=== PATIENT | female | born 1960 | race Asian ===

== ENCOUNTER 2018-12-02 07:02 | Inpatient (IN) | payer BC ==
[~2018-12-02] VITALS: Ht 154.9 cm; Wt 54.0 kg
[2018-12-02 07:02] VITALS: BP_SYST 115
[2018-12-02 08:08] LABS: BASOPHILS % (AUTO) 0.2 % (0.0-2.0); EOSINOPHILS % (AUTO) 0.3 % (0.0-4.0); HEMATOCRIT 34.1 % (36-48); HEMOGLOBIN 11.4 g/dL (12.0-16.0); LYMPHOCYTES # (AUTO) 0.2 K/uL (1.0-5.5); LYMPHOCYTES % (AUTO) 2.6 % (20.5-51.5); MEAN CORPUSCULAR HEMOGLOBIN 28 pg (27-31); MEAN CORPUSCULAR HGB CONC 33 % (32-36); MEAN CORPUSCULAR VOLUME 85 fL (79.0-98.0); MONOCYTES # (AUTO) 0.1 K/uL (0.0-1.0); NEUTROPHILS # (AUTO) 7.2 K/uL (1.8-7.7); NEUTROPHILS % (AUTO) 95.9 % (40.0-70.0); PLATELET COUNT (AUTO) 147 K/uL (130-430); RED BLOOD CELL COUNT(AUTO) 4.03 MIL/uL (4.2-6.2); RED CELL DISTRIBUTION WIDTH 12.7 % (9.0-15.0); WHITE BLOOD COUNT (AUTO) 7.5 K/uL (4.8-10.8)
[2018-12-02] MEDS ORDERED: KETOROLAC TROMETHAMINE 15 MG VIAL IVP ONE (08:15)
[2018-12-02] MEDS ORDERED: NACL 0.9% 1,000 ML IV ONE (08:15)
[2018-12-02 08:22] LABS: CALCIUM 9.4 mg/dL (8.4-11.0); CREATININE 1.1 mg/dL (0.55-1.30)
[2018-12-02 08:24] LABS: INR 1.1 (0.8-1.2); PROTHROMBIN TIME 10.8 SECS (9.5-12.5)
[2018-12-02 08:28] LABS: ALBUMIN 2.9 g/dL (3.4-4.8); TOTAL BILIRUBIN 0.9 mg/dL (0.0-1.0)
[2018-12-02 08:42] LABS: BILIRUBIN,URINE NEGATIVE (NEGATIVE); BLOOD, URINE TRACE (NEGATIVE); CLARITY/URINE HAZY (CLEAR); COLOR,URINE YELLOW (YELLOW); GLUCOSE,URINE 3+ (NEGATIVE); KETONES,URINE TRACE (NEGATIVE); LEUKOCYTE ESTERASE ,URINE NEGATIVE (NEGATIVE); NITRITE, URINE POSITIVE (NEGATIVE); PROTEIN URINE 1+ (NEGATIVE); UROBILINOGEN,URINE 0.2 (0.2-1.0)
[2018-12-02] MEDS ORDERED: INSULIN REGULAR, HUMAN 10 UNITS/0.1 ML INJ IVP ONE (08:45)
[2018-12-02 08:48] LABS: BACTERIA,URINE MANY /HPF (None Seen); RBC,URINE 0-3 /HPF (0-3); WBC,URINE 0-3 /HPF (0-3)
[2018-12-02 08:49] LABS: MUCUS,URINE 1+ /LPF (None Seen)
[2018-12-02] MEDS ORDERED: IOHEXOL 100 ML IV ONE (10:57)
[2018-12-02] MEDS ORDERED: cefTRIAXone 1 GM IVPB PREMIX 50 ML IV ONE (11:00)
[2018-12-02] MEDS ORDERED: D5/0.45 NS 1,000 ML IV SCH (12:00)
[2018-12-02] MEDS ORDERED: NACL 0.9% 600 ML IV ONE (12:00)
[2018-12-02 12:11] VITALS: BP_SYST 90
[2018-12-02] MEDS ORDERED: D5W 1,000 ML IV PRN (12:12)
[2018-12-02] MEDS ORDERED: HYDROcodone/ACETAMIN 10-325 MG TAB PO PRN (12:15)
[2018-12-02] MEDS ORDERED: LORazepam 2 MG/ML VIAL IVP PRN (12:15)
[2018-12-02] MEDS ORDERED: DEXTROSE 50% JECT 50 ML DISP.SYRIN IVP PRN ×2 (12:15→13:30)
[2018-12-02] MEDS ORDERED: GLUCOSE 15 GM GEL (in 37.5 GM TUBE) PO PRN (12:15)
[2018-12-02] MEDS ORDERED: INSULIN REGULAR, HUMAN 100 UNITS/ML, 10 ML VIAL (novoLIN R) SUBCUT PRN (12:15)
[2018-12-02] MEDS ORDERED: ACETAMINOPHEN 325 MG TABLET PO PRN (12:15)
[2018-12-02] MEDS ORDERED: ONDANSETRON HCL 4 MG/2 ML VIAL IVP PRN (12:15)
[2018-12-02] MEDS ORDERED: HYDROcodone/ACETAMIN 5-325 MG TAB (NORCO/ VICODIN) PO PRN (12:15)
[2018-12-02] MEDS ORDERED: PIOGLITAZONE HCL 30 MG TABLET PO ONE (12:30)
[2018-12-02] MEDS ORDERED: metFORMIN HCL 500 MG TABLET PO ONE (12:30)
[2018-12-02] MEDS ORDERED: PIOGLITAZONE HCL 15 MG TABLET PO ONE (12:45)
[2018-12-02 13:41] VITALS: BP_SYST 90
[2018-12-02] MEDS ORDERED: INSULIN GLARGINE 100 UNITS/ML 10 ML VIAL SUBCUT ONE (13:45)
[2018-12-02] MEDS: NACL 0.9% 1,000 ML IV SCH ×2 (13:54→23:08)
[2018-12-02] MEDS ORDERED: ZOLP10TA2 PO (15:41)
[2018-12-02] MEDS ORDERED: GLU500 PO (15:41)
[2018-12-02] MEDS ORDERED: SER25 PO (15:41)
[2018-12-02] MEDS ORDERED: LIP40 PO (15:41)
[2018-12-02] MEDS ORDERED: SERT-131 PO (15:41)
[2018-12-02 17:18] VITALS: BP_SYST 87
[2018-12-02] MEDS: INSULIN LISPRO SLIDING SCALE 100 UNITS/ML VIAL (humaLOG) SUBCUT PRN ×2 (17:37→20:37)
[2018-12-02] MEDS ORDERED: PIPERACILLIN/TAZO 3.375/DEX-IS 50 ML IV SCH (18:00)
[2018-12-02] MEDS ORDERED: metFORMIN HCL 500 MG TABLET PO SCH (18:00)
[2018-12-02 20:00] VITALS: BP_SYST 95
[2018-12-02] MEDS: DOXYCYCLINE HYCLATE 100 MG in D5W 100 ML IV SCH (20:34)
[2018-12-02] MEDS: ATORVASTATIN 20 MG TABLET PO SCH (20:35)
[2018-12-02] MEDS: SERTRALINE HCL 50 MG TABLET PO SCH (20:35)
[2018-12-02] MEDS: QUEtiapine FUMARATE 25 MG TABLET PO SCH (20:35)
[2018-12-02] MEDS: ZOLPIDEM TARTRATE 5 MG TABLET PO PRN (20:47)
[2018-12-03 00:54] VITALS: BP_SYST 98
[2018-12-03 05:14] LABS: CALCIUM 8.1 mg/dL (8.4-11.0); CREATININE 0.67 mg/dL (0.55-1.30); POTASSIUM 3.7 mmol/L (3.5-5.1)
[2018-12-03 05:16] LABS: BASOPHILS % (AUTO) 0.1 % (0.0-2.0); EOSINOPHILS # (AUTO) 0.2 K/uL (0.0-0.4); EOSINOPHILS % (AUTO) 2.7 % (0.0-4.0); LYMPHOCYTES # (AUTO) 0.7 K/uL (1.0-5.5); LYMPHOCYTES % (AUTO) 9.6 % (20.5-51.5); MEAN CORPUSCULAR HEMOGLOBIN 29 pg (27-31); MEAN CORPUSCULAR HGB CONC 34 % (32-36); MEAN CORPUSCULAR VOLUME 84 fL (79.0-98.0); MONOCYTES # (AUTO) 0.6 K/uL (0.0-1.0); MONOCYTES % (AUTO) 8.4 % (1.7-9.3); NEUTROPHILS # (AUTO) 6.1 K/uL (1.8-7.7); NEUTROPHILS % (AUTO) 79.2 % (40.0-70.0); PLATELET COUNT (AUTO) 121 K/uL (130-430); RED BLOOD CELL COUNT(AUTO) 3.28 MIL/uL (4.2-6.2); RED CELL DISTRIBUTION WIDTH 12.5 % (9.0-15.0); WHITE BLOOD COUNT (AUTO) 7.6 K/uL (4.8-10.8)
[2018-12-03 05:30] LABS: THYROID STIMULATING HORMONE 0.74 uIu/mL (0.36-3.74)
[2018-12-03 05:34] LABS: HEMATOCRIT 28.6 % (36-48); HEMOGLOBIN 9.6 g/dL (12.0-16.0)
[2018-12-03] MEDS: INSULIN LISPRO SLIDING SCALE 100 UNITS/ML VIAL (humaLOG) SUBCUT PRN ×4 (06:07→20:49)
[2018-12-03 08:29] VITALS: BP_SYST 90
[2018-12-03] MEDS: PIOGLITAZONE HCL 15 MG TABLET PO SCH (09:44)
[2018-12-03] MEDS: SERTRALINE HCL 50 MG TABLET PO SCH ×2 (09:45→20:43)
[2018-12-03] MEDS: QUEtiapine FUMARATE 25 MG TABLET PO SCH ×2 (09:45→20:44)
[2018-12-03] MEDS: NACL 0.9% 1,000 ML IV SCH ×2 (09:47→21:57)
[2018-12-03] MEDS: DOXYCYCLINE HYCLATE 100 MG in D5W 100 ML IV SCH ×2 (09:50→20:44)
[2018-12-03] MEDS: INSULIN GLARGINE 100 UNITS/ML 10 ML VIAL SUBCUT SCH (09:51)
[2018-12-03] MEDS: cefTRIAXone 1 GM in D5W 50 ML IV SCH (10:05)
[2018-12-03] MEDS ORDERED: cefTRIAXone 1 GM IVPB PREMIX 50 ML IV SCH (11:00)
[2018-12-03 11:25] VITALS: BP_SYST 105
[2018-12-03 16:17] VITALS: BP_SYST 92
[2018-12-03] MEDS: metFORMIN HCL 500 MG TABLET PO SCH (18:00)
[2018-12-03 19:15] VITALS: BP_SYST 101
[2018-12-03] MEDS: ATORVASTATIN 20 MG TABLET PO SCH (20:43)
[2018-12-03] MEDS: ZOLPIDEM TARTRATE 5 MG TABLET PO PRN (21:56)
[2018-12-03 23:57] VITALS: BP_SYST 102
[2018-12-04 06:08] LABS: HEMATOCRIT 31.9 % (36-48); HEMOGLOBIN 10.5 g/dL (12.0-16.0); MEAN CORPUSCULAR HEMOGLOBIN 28 pg (27-31); MEAN CORPUSCULAR HGB CONC 33 % (32-36); MEAN CORPUSCULAR VOLUME 85 fL (79.0-98.0); PLATELET COUNT (AUTO) 179 K/uL (130-430); RED BLOOD CELL COUNT(AUTO) 3.76 MIL/uL (4.2-6.2); RED CELL DISTRIBUTION WIDTH 12.7 % (9.0-15.0); WHITE BLOOD COUNT (AUTO) 6.3 K/uL (4.8-10.8)
[2018-12-04] MEDS: INSULIN LISPRO SLIDING SCALE 100 UNITS/ML VIAL (humaLOG) SUBCUT PRN ×5 (06:11→21:53)
[2018-12-04] MEDS: NACL 0.9% 1,000 ML IV SCH ×2 (06:16→17:04)
[2018-12-04 07:22] LABS: CALCIUM 8.7 mg/dL (8.4-11.0); CREATININE 0.67 mg/dL (0.55-1.30); POTASSIUM 3.6 mmol/L (3.5-5.1)
[2018-12-04 07:23] LABS: C-REACTIVE PROTEIN QUANT 19.8 mg/dL (0-0.5)
[2018-12-04 07:33] LABS: ERYTHROCYTE SEDIMENTATION RATE 75 MM/HR (0-20)
[2018-12-04] MEDS: metFORMIN HCL 500 MG TABLET PO SCH ×2 (08:00→17:03)
[2018-12-04 08:09] LABS: BAND % (MANUAL) 9 % (0-6); BASOPHILS % (MANUAL) 0 % (0-2); EOSINOPHILS % (MANUAL) 2 % (0-7); LYMPHOCYTES % (MANUAL) 14 % (20-46); MONOCYTES % (MANUAL) 9 % (0-11)
[2018-12-04 09:00] VITALS: BP_SYST 160
[2018-12-04] MEDS ORDERED: INSULIN Lispro 100 UNITS/ML VIAL (humaLOG) SUBCUT ONE (09:15)
[2018-12-04] MEDS: QUEtiapine FUMARATE 25 MG TABLET PO SCH ×2 (09:20→21:47)
[2018-12-04] MEDS: SERTRALINE HCL 50 MG TABLET PO SCH ×2 (09:23→21:47)
[2018-12-04] MEDS: DOXYCYCLINE HYCLATE 100 MG in D5W 100 ML IV SCH ×2 (09:23→21:48)
[2018-12-04] MEDS: PIOGLITAZONE HCL 15 MG TABLET PO SCH (09:31)
[2018-12-04] MEDS: INSULIN GLARGINE 100 UNITS/ML 10 ML VIAL SUBCUT SCH (10:06)
[2018-12-04] MEDS: cefTRIAXone 1 GM in D5W 50 ML IV SCH (10:07)
[2018-12-04] MEDS: INSULIN Lispro 100 UNITS/ML VIAL (humaLOG) SUBCUT SCH ×2 (11:24→17:01)
[2018-12-04 11:49] VITALS: BP_SYST 103
[2018-12-04 16:08] VITALS: BP_SYST 95
[2018-12-04 20:06] VITALS: BP_SYST 130
[2018-12-04] MEDS: ATORVASTATIN 20 MG TABLET PO SCH (21:47)
[2018-12-04 23:44] VITALS: BP_SYST 121
[2018-12-05] MEDS: NACL 0.9% 1,000 ML IV SCH ×2 (03:48→11:31)
[2018-12-05] MEDS: INSULIN Lispro 100 UNITS/ML VIAL (humaLOG) SUBCUT SCH ×2 (06:10→11:29)
[2018-12-05] MEDS: INSULIN LISPRO SLIDING SCALE 100 UNITS/ML VIAL (humaLOG) SUBCUT PRN ×2 (06:12→11:27)
[2018-12-05 06:21] LABS: BASOPHILS % (AUTO) 0.5 % (0.0-2.0); EOSINOPHILS # (AUTO) 0.1 K/uL (0.0-0.4); HEMATOCRIT 31.5 % (36-48); HEMOGLOBIN 10.4 g/dL (12.0-16.0); LYMPHOCYTES % (AUTO) 19.7 % (20.5-51.5); MEAN CORPUSCULAR HEMOGLOBIN 28 pg (27-31); MEAN CORPUSCULAR HGB CONC 33 % (32-36); MEAN CORPUSCULAR VOLUME 85 fL (79.0-98.0); MONOCYTES # (AUTO) 0.5 K/uL (0.0-1.0); MONOCYTES % (AUTO) 8.8 % (1.7-9.3); NEUTROPHILS # (AUTO) 3.7 K/uL (1.8-7.7); PLATELET COUNT (AUTO) 190 K/uL (130-430); RED BLOOD CELL COUNT(AUTO) 3.73 MIL/uL (4.2-6.2); RED CELL DISTRIBUTION WIDTH 12.9 % (9.0-15.0); WHITE BLOOD COUNT (AUTO) 5.3 K/uL (4.8-10.8)
[2018-12-05 06:43] LABS: ALBUMIN 1.9 g/dL (3.4-4.8); C-REACTIVE PROTEIN QUANT 10.4 mg/dL (0-0.5); CALCIUM 8.4 mg/dL (8.4-11.0); CREATININE 0.69 mg/dL (0.55-1.30); POTASSIUM 3.8 mmol/L (3.5-5.1); TOTAL BILIRUBIN 0.5 mg/dL (0.0-1.0)
[2018-12-05 07:48] LABS: ERYTHROCYTE SEDIMENTATION RATE 62 MM/HR (0-20)
[2018-12-05 08:14] VITALS: BP_SYST 107
[2018-12-05] MEDS: metFORMIN HCL 500 MG TABLET PO SCH (08:35)
[2018-12-05] MEDS: SERTRALINE HCL 50 MG TABLET PO SCH (08:45)
[2018-12-05] MEDS: PIOGLITAZONE HCL 15 MG TABLET PO SCH (08:45)
[2018-12-05] MEDS: QUEtiapine FUMARATE 25 MG TABLET PO SCH (08:45)
[2018-12-05] MEDS: DOXYCYCLINE HYCLATE 100 MG in D5W 100 ML IV SCH (08:46)
[2018-12-05] MEDS: INSULIN GLARGINE 100 UNITS/ML 10 ML VIAL SUBCUT SCH (08:47)
[2018-12-05] MEDS: cefTRIAXone 1 GM in D5W 50 ML IV SCH (11:23)
[2018-12-05 12:33] VITALS: BP_SYST 110
[2018-12-05] MEDS ORDERED: AMOX-426 PO ×2 (12:39→13:05)
[2018-12-05] MEDS ORDERED: PIOG15TA8 PO (13:05)
[2018-12-05] MEDS ORDERED: INSU100V SUBCUT (13:05)
[2018-12-05] MEDS ORDERED: INSU100V9 SUBCUT (13:05)
[2018-12-05 13:53] VITALS: BP_SYST 110
== END 2018-12-05 14:31 | disposition home or self-care (01) | DRG 872 ==
LOC: SED 07:02 → SMU 10:45 → STU 11:41 → SMU 12-03 23:05
PROVIDERS: ADMIT Preventive Medicine Preventive Medicine/Occupational Environmental Medicine; ATTEND Preventive Medicine Preventive Medicine/Occupational Environmental Medicine
DX: A41.50 Gram-negative sepsis, unspecified (principal); E87.1 Hypo-osmolality and hyponatremia; N10 Acute pyelonephritis; E87.2 Acidosis; B96.20 Unspecified Escherichia coli [E. coli] as the cause of diseases classified elsewhere; D64.9 Anemia, unspecified; D69.6 Thrombocytopenia, unspecified; E11.22 Type 2 diabetes mellitus with diabetic chronic kidney disease; E11.65 Type 2 diabetes mellitus with hyperglycemia; E78.5 Hyperlipidemia, unspecified; B34.9 Viral infection, unspecified; E83.52 Hypercalcemia; I12.9 Hypertensive chronic kidney disease with stage 1 through stage 4 chronic kidney disease, or unspecified chronic kidney disease; F41.9 Anxiety disorder, unspecified; J98.4 Other disorders of lung; N18.9 Chronic kidney disease, unspecified; Z16.24 Resistance to multiple antibiotics; Z79.4 Long term (current) use of insulin; Z79.84 Long term (current) use of oral hypoglycemic drugs
CPT/HCPCS: 36415; 71045; 71260-TC; 80048; 80053; 81000-TC; 82962; 83036; 83605; 84443-TC; 84484; 85007; 85025; 85027; 85610-TC; 85651-TC; 85730-TC; 86140; 86710; 87040-TC; 87086; 87186-TC; 87207; 96361; 96374; 96375; 99285; G0378; J0696; J1815; J1885; J2543; J3490; J7030; J7060; Q9967